=== PATIENT | male | born 1970 | race Caucasian/White ===

== ENCOUNTER 2017-08-31 09:25 | Emergency (ER) | payer OTHER, MEDICAID ==
[~2017-08-31] VITALS: Ht 175.3 cm; Wt 66.5 kg
[~2017-08-31 09:25] MED LIST: INSU100V2 SQ; LIPA1CAP PO; NOVO7030P2 SQ; OMEP20TA PO; PERC5TAB12 PO
[2017-08-31 09:28] VITALS: BP 123/72; PULSE 75; RESP 16; TEMP 97.5; O2SAT 100
[2017-08-31 09:40] VITALS: RESP 16; O2SAT 100
[2017-08-31] MEDS ORDERED: ALEV220T14 PO (09:52)
[2017-08-31] MEDS ORDERED: OMEP20TA93 PO (09:52)
[2017-08-31] MEDS ORDERED: INSU1.2I SQ (09:52)
[2017-08-31] MEDS ORDERED: GABA400C5 PO (09:52)
[2017-08-31] MEDS ORDERED: HUMALOG SQ (09:52)
[2017-08-31] MEDS ORDERED: ENAL5TAB PO (09:52)
[2017-08-31] MEDS ORDERED: SODIUM CHLORIDE 0.9% FLUSH 10 ML FLUSH IVF PRN (10:00)
[2017-08-31 10:11] LABS: AUTOMATED NEUTROPHIL # 4.9 TH/MM3 (1.8-7.7); BASOPHIL # 0.1 TH/MM3 (0-0.2); BASOPHIL % 1.2 % (0.0-2.0); EOSINOPHIL # 0.5 TH/MM3 (0-0.4); EOSINOPHIL % 4.8 % (0.0-4.0); HEMATOCRIT 37.8 % (39.0-51.0); HEMO FLAGS DIFF FINAL; LYMPH % 36.8 % (9.0-44.0); LYMPHOCYTE # 3.6 TH/MM3 (1.0-4.8); MEAN CELL VOLUME 94.4 FL (80.0-100.0); MEAN CORPUSCULAR HGB CONC 32.8 % (32.0-36.0); NEUT % 50.2 % (16.0-70.0); PLATELET COUNT 327 TH/MM3 (150-450); RED BLOOD COUNT 4.01 MIL/MM3 (4.50-5.90); WHITE BLOOD COUNT 9.8 TH/MM3 (4.0-11.0)
--- NOTE | 2017-08-31 10:14 | PD ---
HPI Chief Complaint: General Weakness Time Seen by Provider: 09:48 Travel History International Travel<30 days: No Contact w/Intl Traveler<30days: No Traveled to known affect area: No History of Present Illness HPI Patient is a 46-year-old male presents emergency department for evaluation of multiple complaints. The patient apparently saw his primary care physician's nurse practitioner 5 days ago and was told to come into the emergency department then for evaluation but decided to come in today. His first complaint is that he has bilateral numbness and tingling in his fingers and hands as well as from his knees down. He has a history of uncontrolled diabetes and states that sugar usually runs in the 3-400 range. Denies any focalized weakness. He states that this is been going on for months. His second complaint is that intermittently he has blood in his stools and has incontinence of stool while he is sleeping. He also has been having some generalized abdominal cramping. Had a colonoscopy 5 years ago and he states that he was told everything was normal. Apparently his primary care provider wanted him to come up here for evaluation of this last week. Patient also states she's been having some fatigue as well as noticing some blood in his urine. Certainly the patient has been taking 5 believes approximately every 6- 8 hours for his pain in his extremities. Did not endorse decreased urinary output. Symptoms are moderate, for the past few months, gradually worsening, in the setting of uncontrolled diabetes. 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) Patient Takes Glucophage: No Diminished Hearing: No Endocrine: Yes (CHRONIC PANCREATITIS) Hypertension: Yes Immune Disorder: No Medical other: Yes (peripheral neuropathy) Immunizations Current: Yes Pancreatitis: Yes (CHRONIC) Ulcer: Yes Influenza Vaccination: No Past Surgical History Surgical History: No Previous Surgery Social History Alcohol Use: Yes (occ) Tobacco Use: Yes (1.5 PPD) Substance Use: Yes (QUIT 2 YEARS AGO) Allergies-Medications (Allergen,Severity, Reaction): Coded Allergies: No Known Allergies (Verified Adverse Reaction, Unknown, 08/31/17) Reported Meds & Prescriptions Reported Meds & Active Scripts Active Reported Humalog Inj (Insulin Human Lispro) 1,000 Unit/10 Ml Vial 4 Units SQ 0230 Max dose at bedtime:( )units; sugars< 70,(0)units; sugars 150-199,(1)unit; sugars 200-249,(3)units; sugars 250-299,(5)units; sugars 300-349,(7)units; sugars more than 349,(9)units. Omeprazole 20 Mg Tab 20 Mg PO DAILY Enalapril (Enalapril Maleate) 5 Mg Tab 5 Mg PO DAILY Brenden Zuñiga Pen Inj (Insulin Glargine) 300 Unit/Ml Pen 28 Units SQ DAILY Aleve Arthritis (Naproxen Sodium) 220 Mg Tab 5 Tab PO TID Gabapentin 400 Mg Cap 400 Cap PO TID Review of Systems Except as stated in HPI: all other systems reviewed are Neg Physical Exam Narrative GENERAL: Well-developed well-nourished in no obvious distress sitting in a stretcher playing games on the phone. SKIN: Focused skin assessment warm/dry. HEAD: Atraumatic. Normocephalic. EYES: Pupils equal and round. No scleral icterus. No injection or drainage. ENT: No nasal bleeding or discharge. Mucous membranes pink and moist. NECK: Trachea midline. No JVD. CARDIOVASCULAR: Regular rate and rhythm. No murmur appreciated. RESPIRATORY: No accessory muscle use. Clear to auscultation. Breath sounds equal bilaterally. GASTROINTESTINAL: Abdomen soft, non-tender, nondistended. Hepatic and splenic margins not palpable. No rebound no percussive tenderness. MUSCULOSKELETAL: No obvious deformities. No clubbing. No cyanosis. No edema. NEUROLOGICAL: Awake and alert. No obvious cranial nerve deficits. Motor grossly within normal limits. Normal speech. PSYCHIATRIC: Appropriate mood and affect; insight and judgment normal. Data Data Last Documented VS Vital Signs Date Time Temp Pulse Resp B/P (MAP) Pulse Ox O2 Delivery O2 Flow Rate FiO2 08/31/17 11:05 08/31/17 10:50 72 16 99 Room Air 08/31/17 09:28 97.5 Orders Orders Complete Blood Count With Diff (08/31/17 09:56) Comprehensive Metabolic Panel (08/31/17 09:56) Magnesium (Mg) (08/31/17 09:56) Prothrombin Time / Inr (Pt) (08/31/17 09:56) Act Partial Throm Time (Ptt) (08/31/17 09:56) Ecg Monitoring (08/31/17 09:56) Iv Access Insert/Monitor (08/31/17 09:56) Oximetry (08/31/17 09:56) Oxygen Administration (08/31/17 09:56) Sodium Chloride 0.9% Flush (Ns Flush) (08/31/17 10:00) Ed Discharge Order (08/31/17 10:52) Labs Laboratory Tests Test 08/31/17 10:05 White Blood Count 9.8 TH/MM3 Red Blood Count 4.01 MIL/MM3 Hemoglobin 12.4 GM/DL Hematocrit 37.8 % Mean Corpuscular Volume 94.4 FL Mean Corpuscular Hemoglobin 31.0 PG Mean Corpuscular Hemoglobin Concent 32.8 % Red Cell Distribution Width 14.0 % Platelet Count 327 TH/MM3 Mean Platelet Volume 8.4 FL Neutrophils (%) (Auto) 50.2 % Lymphocytes (%) (Auto) 36.8 % Monocytes (%) (Auto) 7.0 % Eosinophils (%) (Auto) 4.8 % Basophils (%) (Auto) 1.2 % Neutrophils # (Auto) 4.9 TH/MM3 Lymphocytes # (Auto) 3.6 TH/MM3 Monocytes # (Auto) 0.7 TH/MM3 Eosinophils # (Auto) 0.5 TH/MM3 Basophils # (Auto) 0.1 TH/MM3 CBC Comment DIFF FINAL Differential Comment Prothrombin Time 10.7 SEC Prothromb Time International Ratio 1.0 RATIO Activated Partial Thromboplast Time 26.8 SEC Blood Urea Nitrogen 6 MG/DL Creatinine 0.69 MG/DL Random Glucose 280 MG/DL Total Protein 6.3 GM/DL Albumin 3.5 GM/DL Calcium Level 7.8 MG/DL Magnesium Level 1.8 MG/DL Alkaline Phosphatase 109 U/L Aspartate Amino Transf (AST/SGOT) 71 U/L Alanine Aminotransferase (ALT/SGPT) 105 U/L Total Bilirubin 0.3 MG/DL Sodium Level 142 MEQ/L Potassium Level 3.4 MEQ/L Chloride Level 109 MEQ/L Carbon Dioxide Level 26.8 MEQ/L Anion Gap 6 MEQ/L Estimat Glomerular Filtration Rate 124 ML/MIN MDM Medical Decision Making Medical Screen Exam Complete: Yes Emergency Medical Condition: Yes Differential Diagnosis Peripheral neuropathy, acute kidney injury, naproxen abuse, GERD, GI bleeding, uncontrolled diabetes mellitus. Narrative Course Patient roomed emerged permit, he appears well and in no distress. Intermittent GI bleeding for the past month his hemoglobin is stable, he has need for outpatient referral to gastroenterology for consideration of colonoscopy and this was verbalized to me understands. His symptoms of his hands and legs are much more likely diabetic neuropathy, his sugar is minimally elevated here there is no indication to lower him acutely. Remainder of his electrolytes are within normal limits, no indication for CAT scan of his abdomen on emergent basis today he is stable to pursue outpatient workup of his multiple complaints. This was all conveyed to him, discussed dietary concerns with diabetes mellitus, discussed smoking cessation with his uncontrolled diabetes does contribute strongly to risk factors for ACS and stroke. At this point he is stable for discharge. Diagnosis Primary Impression: Generalized weakness Additional Impressions: Hematochezia Uncontrolled diabetes mellitus Peripheral neuropathy Additional Instructions: Call your regular physician today for further instruction. Avoid NSAID drugs such as naproxen, ibuprofen, motrin, mobic, meloxicam, aleve etc. Disposition: 01 DISCHARGE HOME Condition: Stable Axel Christian MD Aug 31, 2017 10:14
[2017-08-31 10:17] LABS: CHLORIDE 109 MEQ/L (98-107); POTASSIUM 3.4 MEQ/L (3.5-5.1); SODIUM (NA) 142 MEQ/L (136-145)
[2017-08-31 10:21] LABS: ANION GAP 6 MEQ/L (5-15); BICARBONATE 26.8 MEQ/L (21.0-32.0); BLOOD UREA NITROGEN 6 MG/DL (7-18); MAGNESIUM 1.8 MG/DL (1.5-2.5)
[2017-08-31 10:22] LABS: APTT (PATIENT) 26.8 SEC (24.3-30.1); PROTHROMBIN TIME - PATIENT 10.7 SEC (9.8-11.6)
[2017-08-31 10:24] LABS: ALT (GPT) 105 U/L (12-78)
[2017-08-31 10:25] LABS: AST (GOT) 71 U/L (15-37); GLOMERULAR FILTRATION RATE 124 ML/MIN (>89)
[2017-08-31 10:26] LABS: TOTAL BILIRUBIN ADULT 0.3 MG/DL (0.2-1.0)
[2017-08-31 10:27] LABS: ALKALINE PHOSPHATASE 109 U/L (45-117)
[2017-08-31 10:50] VITALS: BP 165/80; PULSE 72; RESP 16; O2SAT 99
== END 2017-08-31 11:06 | disposition home or self-care (01) ==
LOC: PHED 09:25
DX: R53.1 Weakness (principal); G62.9 Polyneuropathy, unspecified; K92.1 Melena; E10.65 Type 1 diabetes mellitus with hyperglycemia; I10 Essential (primary) hypertension; Z79.4 Long term (current) use of insulin; Z79.1 Long term (current) use of non-steroidal anti-inflammatories (NSAID)
CPT/HCPCS: 80053; 83735; 85025; 85610; 85730; 99283